=== PATIENT | male | born 1960 | race Caucasian/White ===

== ENCOUNTER 2020-10-03 20:47 | Inpatient (IN) | payer OTHER ==
[2020-10-03 22:10] VITALS: BMI 21.2
[2020-10-03] MEDS ORDERED: MAGNESIUM CITRATE 300 ML BOTTLE PO PRN (22:26)
[2020-10-03] MEDS ORDERED: ACETAMINOPHEN 325 MG TABLET (FP) PO PRN ×2 (22:26)
[2020-10-03] MEDS ORDERED: MAGNESIUM HYDROX 2400MG/30ML ORAL SUSPENSION 30 ML CUP PO PRN (22:26)
[2020-10-03] MEDS ORDERED: MENTHOL/PHENOL 1 EACH UD MM PRN (22:26)
[2020-10-03] MEDS ORDERED: NICOTINE POLACRILEX 2 MG GUM BUC PRN (22:26)
[2020-10-03] MEDS ORDERED: IBUPROFEN 400 MG TABLET (FP) PO PRN (22:26)
[2020-10-03] MEDS ORDERED: MAG HYDROX/AL HYDROX/SIMETH 30 ML UNIT-DOSE CUP PO PRN (22:26)
[2020-10-03] MEDS ORDERED: ONDANSETRON *ODT* 4 MG TABLET SL PRN (22:26)
[2020-10-03] MEDS ORDERED: METHOCARBAMOL 500 MG TABLET PO PRN (22:26)
[2020-10-03] MEDS ORDERED: BISMUTH SUBSALICYLATE 524 MG/30 ML PO PRN (22:26)
[2020-10-04] MEDS ORDERED: LORazepam 2 MG TABLET ONE (00:53)
[2020-10-04] MEDS: LORazepam 2 MG TABLET PO SCH ×5 (01:04→22:06)
[2020-10-04] MEDS: PRENATAL VITAMINS W/ FOLIC ACID TABLET (FP) PO SCH (09:14)
[2020-10-04] MEDS: LORazepam 1 MG TABLET PO PRN (09:18)
[2020-10-04] MEDS: NICOTINE 14 MG/24 HOURS TOPICAL PATCH TD SCH (09:19)
[2020-10-04 10:24] LABS: HEMATOCRIT 38.1 % (35.4-49); HEMOGLOBIN 13.3 GM/dL (11.7-16.9); MCH 35.5 pg (25.7-33.7); MEAN CELL VOLUME 101.6 fl (80-96); MEAN PLT VOLUME 9.1 fl (7.5-11.1); PLATELET COUNT 70 K/MM3 (134-434); RBC 3.75 M/mm3 (4.00-5.60); RDW 12.2 % (11.9-15.9); WHITE BLOOD COUNT 4.8 K/mm3 (4.0-10.0)
[2020-10-04 10:40] LABS: ALBUMIN 4.4 g/dl (3.4-5.0)
[2020-10-04 10:41] LABS: CALCIUM 8.8 mg/dL (8.5-10.1)
[2020-10-04 10:45] LABS: BLOOD UREA NITROGEN 7.5 mg/dL (7-18); CREATININE 0.8 mg/dL (0.55-1.3)
[2020-10-04 10:46] LABS: BILIRUBIN,TOTAL 1.1 mg/dL (0.2-1)
[2020-10-04 10:47] LABS: TOT PROT 8.3 g/dl (6.4-8.2)
[2020-10-04 11:32] LABS: HIV INTERPRETATION NEGATIVE (NEGATIVE)
[2020-10-04] MEDS: POTASSIUM CHLORIDE TABS 20 MEQ TABLET.ER (FP) PO SCH (13:29)
[2020-10-04] MEDS: MELATONIN 5 MG TABLETS PO SCH (22:06)
[2020-10-04] MEDS: THIAMINE HCL 100 MG TABLET (FP) PO SCH (22:06)
[2020-10-05] MEDS: LORazepam 1 MG TABLET PO PRN ×3 (00:37→23:38)
[2020-10-05] MEDS: LORazepam 1 MG TABLET PO SCH ×4 (06:07→22:42)
[2020-10-05 10:03] LABS: HEMATOCRIT 40.7 % (35.4-49); HEMOGLOBIN 14.1 GM/dL (11.7-16.9); MCH 35.1 pg (25.7-33.7); MCHC 34.7 g/dl (32.0-35.9); MEAN CELL VOLUME 101.4 fl (80-96); MEAN PLT VOLUME 9.3 fl (7.5-11.1); PLATELET COUNT 82 K/MM3 (134-434); RBC 4.01 M/mm3 (4.00-5.60); WHITE BLOOD COUNT 5.2 K/mm3 (4.0-10.0)
[2020-10-05] MEDS: POTASSIUM CHLORIDE TABS 20 MEQ TABLET.ER (FP) PO SCH (10:05)
[2020-10-05] MEDS: PRENATAL VITAMINS W/ FOLIC ACID TABLET (FP) PO SCH (10:05)
[2020-10-05] MEDS: NICOTINE 14 MG/24 HOURS TOPICAL PATCH TD SCH (10:09)
[2020-10-05 10:21] LABS: ALBUMIN 4.4 g/dl (3.4-5.0)
[2020-10-05 10:22] LABS: BLOOD UREA NITROGEN 5.8 mg/dL (7-18); CALCIUM 9.9 mg/dL (8.5-10.1)
[2020-10-05 10:25] LABS: CREATININE 0.8 mg/dL (0.55-1.3)
[2020-10-05 10:26] LABS: BILIRUBIN,TOTAL 1.2 mg/dL (0.2-1); TOT PROT 8.5 g/dl (6.4-8.2)
[2020-10-05] MEDS ORDERED: LORazepam 2 MG TABLET PO ONE (19:30)
[2020-10-05] MEDS: LACTULOSE 20 GM/30 ML UDC (FOR ORAL USE ONLY) PO PRN ×2 (19:43→22:42)
[2020-10-05] MEDS ORDERED: LORazepam 1 MG TABLET PO ONE (19:45)
[2020-10-05] MEDS: MELATONIN 5 MG TABLETS PO SCH ×2 (22:42→23:39)
[2020-10-05] MEDS: THIAMINE HCL 100 MG TABLET (FP) PO SCH (22:42)
[2020-10-06] MEDS ORDERED: LORazepam 0.5 MG TABLET PO PRN
[2020-10-06] MEDS: LORazepam 0.5 MG TABLET PO SCH ×4 (05:52→22:39)
[2020-10-06] MEDS: POTASSIUM CHLORIDE TABS 20 MEQ TABLET.ER (FP) PO SCH (10:20)
[2020-10-06] MEDS: PRENATAL VITAMINS W/ FOLIC ACID TABLET (FP) PO SCH (10:20)
[2020-10-06] MEDS: NICOTINE 14 MG/24 HOURS TOPICAL PATCH TD SCH (10:28)
[2020-10-06] MEDS: LIDOCAINE 5% TOPICAL PATCH TP SCH (15:15)
[2020-10-06] MEDS: LACTULOSE 20 GM/30 ML UDC (FOR ORAL USE ONLY) PO PRN (18:10)
[2020-10-06] MEDS: THIAMINE HCL 100 MG TABLET (FP) PO SCH (22:38)
[2020-10-06] MEDS: MELATONIN 5 MG TABLETS PO SCH (22:40)
[2020-10-06] MEDS: LIDOCAINE PATCH REMOVAL MC SCH (22:40)
[2020-10-07] MEDS ORDERED: LORazepam 0.5 MG TABLET PO ONE (05:00)
[2020-10-07] MEDS: NICOTINE 14 MG/24 HOURS TOPICAL PATCH TD SCH (10:17)
[2020-10-07] MEDS: PRENATAL VITAMINS W/ FOLIC ACID TABLET (FP) PO SCH (10:17)
[2020-10-07] MEDS: LIDOCAINE 5% TOPICAL PATCH TP SCH (10:17)
[2020-10-07] MEDS: LACTULOSE 20 GM/30 ML UDC (FOR ORAL USE ONLY) PO SCH ×3 (13:24→22:34)
[2020-10-07] MEDS: THIAMINE HCL 100 MG TABLET (FP) PO SCH (22:33)
[2020-10-07] MEDS: MELATONIN 5 MG TABLETS PO SCH (22:33)
[2020-10-07] MEDS: LIDOCAINE PATCH REMOVAL MC SCH (22:36)
[2020-10-08 09:15] VITALS: BP 134/81; PULSE 93; TEMP 96.9
[2020-10-08] MEDS: LIDOCAINE 5% TOPICAL PATCH TP SCH (10:43)
[2020-10-08] MEDS: LACTULOSE 20 GM/30 ML UDC (FOR ORAL USE ONLY) PO SCH (10:43)
[2020-10-08] MEDS: PRENATAL VITAMINS W/ FOLIC ACID TABLET (FP) PO SCH (10:44)
[2020-10-08] MEDS: NICOTINE 14 MG/24 HOURS TOPICAL PATCH TD SCH (10:50)
== END 2020-10-08 11:54 | disposition home or self-care (01) | DRG 775 ==
LOC: YASAS 20:47 → Y3N 23:42
PROVIDERS: ADMIT Allergy & Immunology; ATTEND Allergy & Immunology
PROC: HZ2ZZZZ Detoxification Services for Substance Abuse Treatment (ICD-10-PCS; principal; 2020-10-03)
DX: F10.230 Alcohol dependence with withdrawal, uncomplicated (principal); E86.0 Dehydration; K29.70 Gastritis, unspecified, without bleeding; R79.89 Other specified abnormal findings of blood chemistry; R74.01 Elevation of levels of liver transaminase levels; S22.32XD Fracture of one rib, left side, subsequent encounter for fracture with routine healing; W18.39XD Other fall on same level, subsequent encounter
CPT/HCPCS: 36415; 80053; 82140; 85027; 86780; 87389; 93005; 93010; C9803; U0003; U0005